=== PATIENT | male | born 1980 | race Caucasian/White ===

== ENCOUNTER 2022-04-20 17:02 | Emergency (ER) | payer OTHER ==
[~2022-04-20] VITALS: Ht 182.9 cm; Wt 104.5 kg
[2022-04-20 17:53] VITALS: BP 142/85
--- NOTE | 2022-04-20 18:07 | NUR ---
[employer] OFFICER MACKENZIE Wayne.
[2022-04-20] MEDS ORDERED: ketorolac trometh inj. 60 MG/2 ML VIAL IM ONE (18:10)
[2022-04-20] MEDS ORDERED: LIDOcaine 5% patch TP ONE (18:10)
== END 2022-04-20 18:25 | disposition home or self-care (01) ==
LOC: ER 17:03
DX: R07.81 Pleurodynia (principal); Y04.0XXA Assault by unarmed brawl or fight, initial encounter; Y93.89 Activity, other specified; Y92.89 Other specified places as the place of occurrence of the external cause; Y99.8 Other external cause status
CPT/HCPCS: 71046; 96372; 99283; J1885